=== PATIENT | female | born 1935 | race African-American/Black ===

== ENCOUNTER 2016-09-21 12:41 | Emergency (ER) ==
[2016-09-21 12:52] VITALS: BP 145/81; TEMP 97.1; BMI 16.2
--- NOTE | 2016-09-21 13:08 | ED.PDOC ---
General ED Provider: Dr. ROLY YOO JR Chief Complaint: Dizziness Stated Complaint: states when she woke up this am her head was off balance and has been dizzy. states she has a lot of sinus pressure and ears feel full and runny nose [End]97.1 58 18 98% 145/81 310 Time Seen by Physician: 13:01 Mode of Arrival: Wheelchair Information Source: Patient, Family Exam Limitations: No limitations Primary Care Provider: MIREILLE BROWN Nursing and Triage Documentation Reviewed and Agree: No Review of Systems - Review Of Systems Constitutional: Reports: Malaise, Weakness Eyes: Reports: No symptoms Ears, Nose, Mouth, Throat: Reports: Ear pain (right), Nose discharge (frontal congestion) Respiratory: Reports: No symptoms Cardiac: Reports: No symptoms GI: Reports: No symptoms : Reports: No symptoms Musculoskeletal: Reports: No symptoms Skin: Reports: No symptoms Neurological: Reports: No symptoms Endocrine: Reports: No symptoms Hematologic/Lymphatic: Reports: No symptoms All Other Systems: Other Past Medical History - Past Medical History Previously Healthy: No Endocrine: Reports: Dyslipidemia Cardiovascular: Reports: Hypertension Respiratory: Reports: None Hematological: Reports: None Gastrointestinal: Reports: None Genitourinary: Reports: None Neuro/Psych: Reports: None Musculoskeletal: Reports: Back Pain, Joint Pain Cancer: Reports: None Last Menstrual Period: none - Surgical History General Surgical History: Reports: None - Family History Family History: Reports: None - Social History Smoking Status: Never smoker Hx Substance Use: No Alcohol Screening: None Physical Exam - Physical Exam Appearance: Well-appearing, Thin Eyes: MAREK, EOMI, Conjunctiva clear ENT: Ears normal (TMs retracted congested), Nose normal, Oropharynx normal Neck: Supple Respiratory: Airway patent, Breath sounds clear, Breath sounds equal, Respirations nonlabored Cardiovascular: RRR, Pulses normal, No rub, No murmur GI/: Soft, Nontender, No masses, Bowel sounds normal, No Organomegaly Musculoskeletal: Normal strength, ROM intact, No edema, No calf tenderness Skin: Warm, Dry, Normal color Neurological: Sensation intact, Motor intact, Reflexes intact, Cranial nerves intact, Alert, Oriented Psychiatric: Affect appropriate, Mood appropriate Critical Care Note - Critical Care Note Total Time (mins): 0 Course - Course Orders, Labs, Meds: Orders Category Date Time Status Methylprednisolone Sod Succ/Pf [Solu-Medrol 125 mg] MEDS 09/21/16 13:10 Stat 125 mg IM ONCE STA Medications Generic Name Dose Route Start Last Admin Trade Name Freq PRN Reason Stop Dose Admin Methylprednisolone Sodium Succinate 125 mg 09/21/16 13:10 Solu-Medrol 125 Mg IM 09/21/16 13:11 ONCE STA Vital Signs: Temp Pulse Resp BP Pulse Ox 09/21/16 12:43 97.1 F L 58 L 18 145/81 H 98 Departure - Departure Time of Disposition: 13:12 Disposition: HOME SELF-CARE Discharge Problem: Acute sinusitis Instructions: Sinusitis (ED) Condition: Good Pt referred to PMD for follow-up: Yes Additional Instructions: antihistamine for one week then stop (may resume if any worsening) may use zyrtexc or claritin recheck PMD call Friday for follow up Please follow-up with Dr. Brown in 1-5 days. Prescriptions: Loratadine/Pseudoephedrine [Claritin-D 12 Hour Tablet] 1 each PO BID PRN #60 tab.er.12h PRN Reason: Allergy Symptoms Allergies/Adverse Reactions: Allergies codeine Adverse Reaction (Verified 09/21/16 12:47) UNKNOWN meperidine HCl [From Demerol] Adverse Reaction (Verified 09/21/16 12:47) Home Medications: Ambulatory Orders Bisoprolol Fumarate 5 mg PO DAILY 11/22/12 Buspirone HCl 10 mg PO BID 11/22/12 Furosemide [Lasix Tab] 20 mg PO DIRECTED 11/22/12 Lovastatin [Mevacor] 20 mg PO DAILY 11/22/12 Meclizine HCl [Antivert] 25 mg PO TID PRN 11/22/12 Potassium Chloride [K-Dur] 20 meq PO DAILY 11/22/12 Loratadine/Pseudoephedrine [Claritin-D 12 Hour Tablet] 1 each PO BID PRN #60 tab.er.12h 09/21/16
[2016-09-21] MEDS ORDERED: SOLU-MEDROL 125 MG IM STA (13:10)
== END 2016-09-21 13:36 | disposition home or self-care (01) ==
LOC: ED 12:41
DX: J01.90 Acute sinusitis, unspecified (principal)
CPT/HCPCS: 96372; 99282

== ENCOUNTER 2016-10-18 00:30 | Emergency (ER) ==
[2016-10-18 00:41] VITALS: TEMP 98.4; BMI 16.6
[2016-10-18] MEDS ORDERED: SODIUM CHLORIDE 1,000 ML IV STA (00:48)
--- NOTE | 2016-10-18 00:50 | ED.PDOC ---
General ED Provider: Dr. DOLLY HOOKER Chief Complaint: Dizziness Stated Complaint: Patient is an 81 year old female who states that she woke up feeling dizzy when she got out of bed. State that she is dizzy standing, walking , and lying. has some associated nausea. Antivert did not help. Time Seen by Physician: 00:50 Mode of Arrival: Walk-In Information Source: Patient Exam Limitations: No limitations Primary Care Provider: MIREILLE RBOWN Nursing and Triage Documentation Reviewed and Agree: Yes Neurological Complaint Exam - Dizziness Complaint/Exam Last Known Well: yesterday Onset: Gradual Duration: constant Timing: Intermittent Initial Severity: Moderate Current Severity: Moderate Character: Reports: Head spinning, Room spinning, Lightheaded Aggravating: Reports: Position change, Supine to erect Alleviating: Reports: Lying down Associated Signs and Symptoms: Reports: Nausea, Decreased oral intake. Denies: Vomiting, Diaphoresis, Tinnitus, Chest pain, Short of air, Palpitations, Unsteady gait, GI blood loss, Visual changes, Change in medication, Change in diet, OTC meds, Loss of balance Cardiac Risk Factors: Reports: None CVA Risk Factors: Reports: None Related Surgical History: Reports: Valve Replacement JVD Present: No Carotid Bruit Present: No Rectal Heme Positive: No Nystagmus Present: No Gag Reflex Present: Yes Meningeal Signs Positive: No Focal Weakness: Present: None Focal Sensory Loss: Present: None Gait: Unable [id number]: Normal Findings Romberg Test Positive: No Babinski Sign: Negative Right, Negative Left Heel to Toe Normal: No Roger-Hallpike Test Positive: No Differential Diagnoses: Anxiety Quality Indicator For Non-Traumatic Chest Pain/Syncope: EKG Performed Review of Systems - Review Of Systems Constitutional: Reports: No symptoms Eyes: Reports: No symptoms Ears, Nose, Mouth, Throat: Reports: No symptoms Respiratory: Reports: No symptoms Cardiac: Reports: Lightheadedness GI: Reports: Nausea. Denies: Vomiting : Reports: No symptoms Musculoskeletal: Reports: No symptoms Skin: Reports: No symptoms Neurological: Reports: Anxiety Endocrine: Reports: No symptoms Hematologic/Lymphatic: Reports: No symptoms All Other Systems: Reviewed and Negative Past Medical History - Past Medical History Previously Healthy: No Endocrine: Reports: Dyslipidemia Cardiovascular: Reports: Hypertension Respiratory: Reports: None Hematological: Reports: None Gastrointestinal: Reports: None Genitourinary: Reports: None Neuro/Psych: Reports: None Musculoskeletal: Reports: Back Pain, Joint Pain Cancer: Reports: None Last Menstrual Period: HYST. 40 YRS AGO Other Pertinent Past Medical History: Vertigo - Surgical History General Surgical History: Reports: None - Family History Family History: Reports: None - Social History Smoking Status: Never smoker Hx Substance Use: No Alcohol Screening: None - Immunizations Tetanus Shot up to Date: No (UNSURE) Physical Exam - Physical Exam Appearance: Well-appearing, Ill-appearing, Thin Ill-appearing: Mild Eyes: MAREK, EOMI, Conjunctiva clear Neck: Supple Respiratory: Airway patent, Breath sounds clear, Breath sounds equal, Respirations nonlabored Cardiovascular: RRR, Pulses normal, No rub, No murmur GI/: Soft, Nontender, No masses, Bowel sounds normal, No Organomegaly Musculoskeletal: Normal strength, ROM intact, No calf tenderness, Edema (Lower extrmity ) Skin: Warm, Dry, Normal color Neurological: Sensation intact (Except hard of hearing. ) Psychiatric: Anxious Interpretation - Radiology Interpretation Radiology Interpretation By: Radiologist Radiology Results: Negative Exam Interpreted: CT Scan - EKG Interpretation Time of EKG #1: 01:01 Rate: Normal Rhythm: Sinus Ectopy: None Interpretation: septal infact age unknown Re-Evaluation - Re-Evaluation Time of Re-Evaluation: 03:15 Status: Improved Vital Signs Stable: Yes Additional Comments: Ortho statis resolvved Critical Care Note - Critical Care Note Total Time (mins): 20 Comments: patient is noted to be orthostatic with blood pressure dropping > 30 point with standing. Course - Course Hematology/Chemistry: 10/18/16 01:20 10/18/16 01:20 Orders, Labs, Meds: Lab Review 10/18/16 01:20 WBC 5.47 RBC 4.22 Hgb 11.9 L Hct 35.6 L MCV 84.4 MCH 28.2 MCHC 33.4 RDW Coeff of Katty 13.6 Plt Count 245 Immature Gran % (Auto) 0.4 Neut % (Auto) 61.2 Lymph % (Auto) 28.5 Metcalfe % (Auto) 7.9 Eos % (Auto) 1.3 Baso % (Auto) 0.7 Immature Gran # (Auto) 0.0 Neut # 3.4 Lymph # 1.6 Metcalfe # 0.4 Eos # 0.1 Baso # 0.0 Sodium 141 Potassium 3.7 Chloride 104 Carbon Dioxide 27 Anion Gap 13.7 BUN 11 Creatinine 0.84 Estimated GFR (MDRD) 79.00 BUN/Creatinine Ratio 13.09 Glucose 106 Calcium 9.4 Total Bilirubin 0.38 AST 24 ALT 15 Alkaline Phosphatase 74 Total Creatine Kinase 90 Troponin I < 0.0100 Total Protein 6.4 Albumin 3.3 L Globulin 3.1 Albumin/Globulin Ratio 1.06 Orders Category Date Time Status EKG-(ED ONLY) Stat CARDIO 10/18/16 00:50 Ordered ED IV/MEDIPORT/POWERPORT .ONCE EMERGENCY 10/18/16 00:49 Active Orthostatic [ED ORTHOSTATIC VITAL SIGNS] .ONCE EMERGENCY 10/18/16 00:45 Active CBC W/ AUTO DIFF Stat LAB 10/18/16 01:20 Completed COMPREHENSIVE METABOLIC PANEL Stat LAB 10/18/16 01:20 Completed CREATINE KINASE Stat LAB 10/18/16 01:20 Completed TROPONIN I Stat LAB 10/18/16 01:20 Completed 0.9 % Sodium Chloride [Saline Flush] MEDS 10/18/16 00:49 Ordered 1 syr IVF PRN PRN Ondansetron HCl/Pf [Zofran 4 mg/2 ml] MEDS 10/18/16 01:15 Discontinued 4 mg IVP ONCE STA Sodium Chloride 0.9% [Sodium Chloride] 1,000 ml MEDS 10/18/16 00:[address] HEAD W/O CONTRAST Stat RADS 10/18/16 00:48 Completed Medications Generic Name Dose Route Start Last Admin Trade Name Freq PRN Reason Stop Dose Admin Sodium Chloride 1 syr 10/18/16 00:49 10/18/16 01:29 Saline Flush IVF 1 syr PRN PRN Administration To flush IV Discontinued Medications Generic Name Dose Route Start Last Admin Trade Name Freq PRN Reason Stop Dose Admin Sodium Chloride 1,000 mls @ 1,000 mls/hr 10/18/16 00:48 10/18/16 01:29 Sodium Chloride IV 10/18/16 01:47 1,000 mls/hr BOLUS STA Administration Ondansetron HCl 4 mg 10/18/16 01:15 10/18/16 01:29 Zofran 4 Mg/2 Ml IVP 10/18/16 01:16 4 mg ONCE STA Administration Vital Signs: Temp Pulse Resp BP Pulse Ox 10/18/16 03:03 73 160/89 H 10/18/16 03:02 73 149/92 H 10/18/16 00:48 77 121/80 10/18/16 00:47 78 159/86 H 10/18/16 00:45 77 155/96 H 10/18/16 00:32 98.4 F 75 18 139/91 H 98 Departure - Departure Time of Disposition: 03:20 Disposition: HOME SELF-CARE Discharge Problem: Dizziness, Orthostasis Instructions: Dehydration (ED) Condition: Stable Pt referred to PMD for follow-up: Yes Additional Instructions: Push fluids Follow up with PCP in 3 days Allergies/Adverse Reactions: Allergies codeine Adverse Reaction (Verified 09/21/16 12:47) UNKNOWN meperidine HCl [From Demerol] Adverse Reaction (Verified 09/21/16 12:47) Home Medications: Ambulatory Orders Bisoprolol Fumarate 5 mg PO DAILY 11/22/12 Buspirone HCl 10 mg PO BID 11/22/12 Furosemide [Lasix Tab] 20 mg PO DIRECTED 11/22/12 Lovastatin [Mevacor] 20 mg PO DAILY 11/22/12 Meclizine HCl [Antivert] 25 mg PO TID PRN 11/22/12 Potassium Chloride [K-Dur] 20 meq PO DAILY 11/22/12 Loratadine/Pseudoephedrine [Claritin-D 12 Hour Tablet] 1 each PO BID PRN #60 tab.er.12h 09/21/16 Disposition Discussed With: Patient
[2016-10-18] MEDS ORDERED: ZOFRAN 4 MG/2 ML IVP STA (01:15)
[2016-10-18 01:29] LABS: BASOPHILS % (AUTO) 0.7 % (0.0-3.0); EOSINOPHILS # (AUTO) 0.1 K/ul (0.0-0.7); EOSINOPHILS % (AUTO) 1.3 % (0.0-7.0); HEMATOCRIT 35.6 % (37.0-47.0); HEMOGLOBIN 11.9 g/dl (12.0-16.0); IMMATURE GRANULOCYTE % (AUTO) 0.4 % (0.0-5.0); LYMPHOCYTES # (AUTO) 1.6 K/uL (0.60-3.4); LYMPHOCYTES % (AUTO) 28.5 (10.0-50.0); MEAN CORPUSCULAR HEMOGLOBIN 28.2 pg (27.0-31.0); MEAN CORPUSCULAR HGB CONC 33.4 (31.8-35.4); MEAN CORPUSCULAR VOLUME 84.4 fl (81.0-99.0); MONOCYTES # (AUTO) 0.4 K/uL (0.4-2.0); MONOCYTES % (AUTO) 7.9 (0-10); NEUTROPHILS # (AUTO) 3.4 K/ul (2.0-6.9); NEUTROPHILS % (AUTO) 61.2; PLATELET COUNT 245 10^3/uL (140-440); RED BLOOD COUNT 4.22 10^6/ul (4.20-5.40); WHITE BLOOD COUNT 5.47 K/ul (4.6-10.2)
[2016-10-18 01:51] LABS: ALANINE AMINOTRANSFERASE 15 U/L (12-78); ALBUMIN 3.3 g/dL (3.4-5.0); ALBUMIN/GLOBULIN RATIO 1.06; ALKALINE PHOSPHATASE 74 U/L (53-141); ANION GAP 13.7; ASPARTATE AMINO TRANSFERASE 24 U/L (15-37); BILIRUBIN,TOTAL 0.38 mg/dL (0.00-1.20); BLOOD UREA NITROGEN 11 mg/dL (7-18); BUN/CREATININE RATIO 13.09; CALCIUM 9.4 mg/dL (8.2-10.2); CARBON DIOXIDE 27 mmol/L (23-31); CHLORIDE 104 mmol/L (98-107); CREATINE KINASE 90 U/L; CREATININE 0.84 mg/dL (0.60-1.30); GLUCOSE 106 mg/dL (82-115); POTASSIUM 3.7 mmol/L (3.5-5.10); SODIUM 141 mmol/L (136-145); TOTAL PROTEIN 6.4 g/dL (5.8-8.1)
--- NOTE | 2016-10-18 02:09 | CT ---
EXAM: CT head without contrast 10/18/2016. Sagittal and coronal reformatted images obtained HISTORY: Dizziness COMPARISON: 09/13/2015 FINDINGS: There is no evidence of intracranial hemorrhage. The midline is maintained. There is no hydrocephalus. Generalized atrophy. Chronic small vessel ischemic changes. No cerebellar tonsilla r ectopia. Evaluation of the calvarium shows no fracture. The mastoid air cells are normally pneum atized. IMPRESSION: No acute intracranial abnormality.
[2016-10-18 03:03] VITALS: BP 160/89
== END 2016-10-18 03:15 | disposition home or self-care (01) ==
LOC: ED 00:30
DX: R42 Dizziness and giddiness (principal); I95.1 Orthostatic hypotension; E86.0 Dehydration; E78.5 Hyperlipidemia, unspecified; I10 Essential (primary) hypertension; Z79.899 Other long term (current) drug therapy; Z95.2 Presence of prosthetic heart valve
CPT/HCPCS: 36415; 80053; 82550; 84484; 85025; 93005; 93010; 96360; 96361; 96375; 99284

== ENCOUNTER 2017-01-17 08:22 | Outpatient (CLI) ==
--- NOTE | 2017-01-20 09:03 | MAMMO ---
EXAM: Bilateral digital screening mammogram (2-D and 3-D) History: Screening Comparison: Bilateral mammogram 06/28/2015 Findings: MLO and CC views of bilateral breasts demonstrate scattered fibroglandular breast parenchy ma. CAD was reviewed by the radiologist. Tomosynthesis was performed. Stable benign bilateral vascu lar calcifications. Postoperative changes again seen within the left breast. There are no dominant masses, no suspicious microcalcifications and no architectural distortions Impression: Benign stable mammogram. Recommend followup routine screening mammography in 1 year. BIRADS 2
== END 2017-01-17 08:23 | disposition home or self-care (01) ==
LOC: RAD 08:22
PROVIDERS: ATTEND Internal Medicine
DX: Z12.31 Encounter for screening mammogram for malignant neoplasm of breast (principal)
CPT/HCPCS: 77067

== ENCOUNTER 2017-04-17 21:23 | Emergency (ER) ==
--- NOTE | 2017-04-17 21:29 | ED.PDOC ---
General ED Provider: Dr. IDANIA DAWKINS-ER Chief Complaint: Respiratory Complaint Stated Complaint: amado allergies or the flu--my nose is congested and im sneezing Time Seen by Physician: 21:27 Mode of Arrival: Walk-In Information Source: Patient Exam Limitations: No limitations Primary Care Provider: MIREILLE BURDEN Nursing and Triage Documentation Reviewed and Agree: Yes Reviewed sepsis parameters & appropriate labs ordered?: Yes System Inflammatory Response Syndrome: Not Applicable Sepsis Protocol: For patient's 13 years and over: Temp is 96.8 and below OR 101 and greater Pulse >90 BPM Resp >20/minute Acutely Altered Mental Status Are patient's symptoms suggestive of a new infection, such as: -Pneumonia -Skin, Soft Tissue -Endocarditis -UTI -Bone, Joint Infection -Implantable Device -Acute Abdominal Infection -Wound Infection -Meningitis -Blood Stream Catheter Infection -Unknown EENT Complaint Exam - Nasal Complaint/Exam Onset/Duration: less than 12hrs Symptoms Are: Still present Initial Severity: Mild Current Severity: Mild Aggravating: Reports: URI Associated Signs and Symptoms: Reports: Nasal congestion, Nasal discharge. Denies: Bruising, Hematuria, Hematochezia, Sinus pain, Foreign body, Abnormal coags Nasal Surgical History: Reports: None Foreign Body Present: No Septal Hematoma: No Differential Diagnoses: Allergic Rhinitis, Other Review of Systems - Review Of Systems Constitutional: Reports: No symptoms Eyes: Reports: No symptoms Ears, Nose, Mouth, Throat: Reports: Nose discharge Respiratory: Reports: No symptoms Cardiac: Reports: No symptoms GI: Reports: No symptoms : Reports: No symptoms Musculoskeletal: Reports: No symptoms Skin: Reports: No symptoms Neurological: Reports: No symptoms Endocrine: Reports: No symptoms Hematologic/Lymphatic: Reports: No symptoms All Other Systems: Reviewed and Negative Past Medical History - Past Medical History Previously Healthy: No Endocrine: Reports: Dyslipidemia Cardiovascular: Reports: Hypertension Respiratory: Reports: None Hematological: Reports: None Gastrointestinal: Reports: None Genitourinary: Reports: None Neuro/Psych: Reports: None Musculoskeletal: Reports: Back Pain, Joint Pain Cancer: Reports: None Other Pertinent Past Medical History: Vertigo - Surgical History General Surgical History: Reports: None - Family History Family History: Reports: None - Social History Smoking Status: Never smoker Hx Substance Use: No Alcohol Screening: None Physical Exam - Physical Exam Appearance: Well-appearing, No pain distress, Well-nourished Eyes: MAREK, EOMI, Conjunctiva clear ENT: Rhinorrhea Neck: Supple Respiratory: Airway patent Cardiovascular: RRR, Pulses normal, No rub, No murmur GI/: Soft, Nontender, No masses, Bowel sounds normal, No Organomegaly Musculoskeletal: Normal strength, ROM intact, No edema, No calf tenderness Skin: Warm, Dry, Normal color Neurological: Sensation intact, Motor intact, Reflexes intact, Cranial nerves intact, Alert, Oriented Psychiatric: Affect appropriate, Mood appropriate Critical Care Note - Critical Care Note Total Time (mins): 0 Course - Course Orders, Labs, Meds: Orders Category Date Time Status MOLECULAR FLU A/B Stat LAB 04/17/17 21:26 Uncollected MOLECULAR GROUP A STREP Stat LAB 04/17/17 21:26 Uncollected Departure - Departure Time of Disposition: 21:59 Disposition: HOME SELF-CARE Discharge Problem: Rhinitis Qualifiers: Rhinitis type: unspecified Chronicity: acute Qualified Code(s): J00 - Acute nasopharyngitis [common cold] Sinusitis Qualifiers: Sinusitis location: unspecified location Chronicity: acute Recurrence: non- recurrent Qualified Code(s): J01.90 - Acute sinusitis, unspecified Condition: Good Pt referred to PMD for follow-up: Yes Additional Instructions: zpack--f/u wtih dr burden if not getting better Allergies/Adverse Reactions: Allergies codeine Adverse Reaction (Verified 04/17/17 21:32) UNKNOWN meperidine HCl [From Demerol] Adverse Reaction (Verified 04/17/17 21:32) Home Medications: Ambulatory Orders Bisoprolol Fumarate 5 mg PO DAILY 11/22/12 Buspirone HCl 10 mg PO BID 11/22/12 Furosemide [Lasix Tab] 20 mg PO DIRECTED 11/22/12 Lovastatin [Mevacor] 20 mg PO DAILY 11/22/12 Meclizine HCl [Antivert] 25 mg PO TID PRN 11/22/12 Potassium Chloride [K-Dur] 20 meq PO DAILY 11/22/12 Loratadine/Pseudoephedrine [Claritin-D 12 Hour Tablet] 1 each PO BID PRN #60 tab.er.12h 09/21/16 Cetirizine HCl [Zyrtec] 10 mg PO DAILY PRN 04/17/17 Dicyclomine HCl 10 mg PO BID 04/17/17 Tizanidine HCl 4 mg PO DIRECTED 04/17/17 Disposition Discussed With: Patient
[2017-04-17 21:33] VITALS: BP 156/89; TEMP 98.1; BMI 15.0
[2017-04-17] MEDS ORDERED: DECADRON 4 MG/ML SDV IM STA (21:59)
== END 2017-04-17 22:55 | disposition home or self-care (01) ==
LOC: ED 21:23
DX: J01.90 Acute sinusitis, unspecified (principal); J00 Acute nasopharyngitis [common cold]
CPT/HCPCS: 87502; 87651; 96372; 99283

== ENCOUNTER 2017-06-06 07:41 | Outpatient (CLI) ==
--- NOTE | 2017-06-06 09:43 | DI ---
Exam: Six x-rays of the cervical spine. Comparison: None available. Reason for exam: Pain. Technologist note. Patient unable to straighten neck for examination. FINDINGS: Image interpretation is limited by degenerative disease and positioning. No obvious fracture or listhesis in the cervical spine. The vertebral bodies appear relatively well m aintained. There is reversal of the cervical lordotic curve. Severe degenerative disease is seen wi th intervertebral body disc space height loss, osteophyte formation, and facet hypertrophy. The prev ertebral soft tissues are within normal limits. The dens appears grossly intact. Impression: 1. No obvious fracture or listhesis in the cervical spine although evaluation is limited by positioni ng. 2. Moderate to marked degenerative disease seen throughout the cervical spine with reversal of the c ervical lordotic curve, osteophyte formation, intervertebral body disc space height loss, and facet h ypertrophy. If clinical concern exists for radiculopathy or myelopathy, MRI may be performed for fur ther characterization.
== END 2017-06-06 07:42 | disposition home or self-care (01) ==
LOC: RAD 07:41
PROVIDERS: ATTEND Internal Medicine
DX: M54.2 Cervicalgia (principal); M43.6 Torticollis

== ENCOUNTER → 2017-06-18 | Outpatient (RCR) ==
--- NOTE | 2017-06-04 14:16 | RS.OPPTEV2 ---
Date of Note: 06/03/17 Visit #: 1 Date of Evaluation: 06/03/17 Payer Source: MEDICARE Treatment Diagnosis: Neck pain, Torticollis History of Condition/Mechanism of Injury:: Patient reports having this problem with her neck for a few years. States she started sleeping on the couch three years ago, and wonders if that is why she has trouble with her neck now. She has received Chiropractor treatment without any lasting benefit. Prior Level of Function.....Patient was independent with: ADL's, Self Care, Work /Vocation, Ambulation/Mobility, Community Integration/Access Functional Limitations: Sleep, Self Care, ADL's, Reaching, Lifting, Ambulation, Community Access/Integration Current Subjective/complaints:: Patient reports neck stiffness and pain. States she has neck pain at rest and when trying to turn her head. States the position of her head and neck limits her driving. States washing her face is difficult because she has pain and is unalbe to raise her head up and hold it very long. Reports having headaches, but she wonders if headaches may be due to sinus problems. States pain in her neck is sharp at times, but also feels like a drawing sensation. She denies any tingling/numbness, or pain into the UE's. States she does not lay down, even to sleep. States she usually falls asleep sitting up on the couch. States she was given a few stretches to work on at home when she went to the Chiropractor, but states she may not have been doing them correctly. 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 States it is difficult to do any activity that requires her to raise her head. Medical History Medical History: Hypertension, Arthritis (bilateral knees) Smoking Status: Never smoker Hx Home Medications: Patient states she has prescriptions to hot die picker today, but she is not sure what they are. Patient's Goals: Her goal is to get relief of neck pain and be able to have more normal posture. Pain Assessment - Pain Description Pain Location: left neck pain Pain Description: Tightness, Sharp, Aching Current Pain Intensity: 9/10 Worst Pain Intensity: 10/10 Functional Outcome Measure Neck Disability Index: 36 - G Codes & Severity Modifier G Codes & Modifier: Body pos current Ck. Body pos goal CI Source of G Code score: Patient's presentation of functional limitation during evaluation is at least 50%. Neck Disability index score of 36. Observation - Observation Posture: Forward Head, Rounded Shoulders, Scapula Asymmetry (right elevated) Comments: Resting posture patient demonstrates left tilt of head, cervical spine laterally flexed to the left with right rotation. At rest, left ear measures 2 1 /2 inches from the top of the left shoulder. Handedness: Right Gait - Gait Pattern Gait Comments: Patient ambulates without an assistive device with a cautious gait. Head is left laterally flexed and forward during gait. Patient states she looks down as she walks to avoid falling. - ROM Comments: Patient demonstrates marked decrease in all cervical AROM. When asked to look up, patient rotates the cervical spine to the right and extends the trunk. Cervical flexion is also limited due to her spine deformity, but she is able to bring the head forward a functional distance. When attempting right lateral flexion, patient's left ear is 3 1/2 inches from the top of the left shoulder. She is unable to raise the head to full midline. Cervical rotation to the right is approximately 15 degrees, she then compensates by turning her body for further range. Left cervical rotation is minimal and does not come to midline. - Strength Comments: Cervical extension 3+/5, flexion 4/5, left lateral flexion 4/5, right lateral flexion 3/5. Shoulder ROM: Bilaterally WFL's Shoulder Muscle Strength: Bilaterally WFL's Sales Producer Strength Left Hand Sales Producer Strength: 22 lbs. Right Hand Sales Producer Strength: 22 lbs. Dynamometer Testing Position: 2nd Position Palpation Comments:: Marked hypertonicity is noted throughout the left upper traps, SCM, cervical paravertebral muscles, levator scapula and suboccipital musculature. Reports tenderness to palpation at the left suboccipital myofascia and most superior aspect of SCM. Sensation - Sensation Right Upper Extremity: Intact/Normal Left Upper Extremity: Intact/Normal Interventions - Exercise/Activities/Manual Therapy Exercises/Activities: Patient instructed in gentle stretching into lateral flexion and rotation. Also right lateral flexion against gravity. Total minutes of Exercise: 5 mins Manual Therapy: NA HOME EXERCISE PROGRAM: gentle stretching into lateral flexion and rotation. Also right lateral flexion against gravity. - Charges Timed Code Treatment Minutes: 5 mins Total Treatment Time: 50 mins Procedures billed for this date of service:: EVAL Medium EVALUATION COMPLEXITY LEVEL EVALUATION COMPLEXITY LEVEL: HISTORY: Medium, EXAM OF BODY SYSTEMS: Medium, CLINICAL PRESENTATION: Medium, CLINICAL DECISION MAKING: Medium Assessment Assessment: Patient presents to therapy with a diagnosis of neck pain and left torticollis. She demonstrates marked postural deformity of the cervical spine and limitation of cervical ROM. She reports neck pain at rest and with activities. She exhibits hypertonicity throughout the left cervical spine musculature. This appears to be a chronic problem over at least a few years. She demonstrates poor postural awareness. She should gain more cervical mobility and postural stability with skilled therapy. If progress is minimal, she may need further intervention, such as Botox injections to be able to gain progress with therapy. Patient Education: Education of diagnosis, Body/Joint mechanics, Home Exercise Program, Activity Modification, Education of Plan of Care Rehab Potential: Fair Short Term Goals Goal #1: Patient independent and compliant with HEP. Goal to be met by: 06/14/17 Goal #2: Pt consistent with taking muscle relaxent in the evening. Goal to be met by: 06/18/17 Goal #3: Patient to demonstrate good postural awareness. Goal to be met by: 06/18/17 Goal #4: Pt able to hold head into more aligned posture for 30 seconds. Goal to be met by: 06/18/17 Halfway Goals Goal #1: Pt knows HEP and to continue ex's to maintain functional level at D/C. Goal to be met by: 07/14/17 Goal #2: Functional presentation in department less than or equal to 30% impairment. Goal to be met by: 07/14/17 Goal #3: Neck pain <4/10 with daily home and work activities. Goal to be met by: 07/14/17 Goal #4: Cervical AROM improved to enable patient to drive with minimal difficulty. Goal to be met by: 07/14/17 Plan - Treatment to be Provided Procedures: Therapeutic Exercises, Therapeutic Activity, Manual Therapy, Patient Education Modalities: Electrical Stimulation, Ultrasound/Phonophoresis, Cryotherapy, Hot Packs - Treatment Plan Frequency: 2-3 X week Duration: 4 weeks ORDER # VISITS AND/OR THROUGH DATE: 07/14/17 - Treatment Code (1) Neck pain Code(s): M54.2 - CERVICALGIA Comments: M54.2 (2) Acquired torticollis Code(s): M43.6 - TORTICOLLIS Comments: M43.6
--- NOTE | 2017-06-06 08:34 | RS.OPPTDN ---
Subjective Date of Note: 06/04/17 Visit #: 2 Date of Evaluation: 06/03/17 Payer Source: MEDICARE Treatment Diagnosis: Neck pain, Torticollis Current Subjective/complaints:: Patient brings in medication which is a steroid pack. States she believes it has helped a little. She is on the first day of the steroid pack. - Heat/Cryotherapy Treatment: Hot Pack (X 15 mins to left upper traps prior to stretching) Interventions - Exercise/Activities/Manual Therapy Exercises/Activities: Patient position in long sitting with head of bed elevated to allow patient to recline with support of head with pillows. Patient assisted with gentle stretching into right lateral flexion. Performed long axis distraction through left arm with and manual scapular depression x 3 reps. Patient performed isometrics into right lateral flexion , 2 sets of 5 reps. Perform isometrics into cervical extension against the pillows X 5 reps. Patient received manual cervical traction gently 5-6 times for a short hold. Patient performed bilateral shoulder ER and scapular retraction X 10 reps each. Patient given a red band for use at home. Total minutes of Exercise: X 28 mins Manual Therapy: NA HOME EXERCISE PROGRAM: gentle stretching into lateral flexion and rotation. Also right lateral flexion against gravity. red theraband for scapular retraction. - Charges Timed Code Treatment Minutes: 28 mins Total Treatment Time: 38 mins Procedures billed for this date of service:: HP, EX,ADL Assessment: Patient tolerates stretching and beginning postural education. She presents to be responsive to advice for home positioning and activities. She demonstrates the potential to gain improved postural awareness and less neck pain with skilled therapy. Patient Education: Education of diagnosis, Body/Joint mechanics, Home Exercise Program, Home Safety, Activity Modification, Education of Plan of Care Short Term Goals Goal #1: Patient independent and compliant with HEP. Goal to be met by: 06/14/17 Goal #2: Pt consistent with taking muscle relaxent in the evening. Goal to be met by: 06/18/17 Goal #3: Patient to demonstrate good postural awareness. Goal to be met by: 06/18/17 Goal #4: Pt able to hold head into more aligned posture for 30 seconds. Goal to be met by: 06/18/17 Intermediate Goals Goal #1: Pt knows HEP and to continue ex's to maintain functional level at D/C. Goal to be met by: 07/14/17 Goal #2: Functional presentation in department less than or equal to 30% impairment. Goal to be met by: 07/14/17 Goal #3: Neck pain <4/10 with daily home and work activities. Goal to be met by: 07/14/17 Goal #4: Cervical AROM improved to enable patient to drive with minimal difficulty. Goal to be met by: 07/14/17 Plan PLAN OF CARE EXPIRES ON:: 07/14/17 ORDER # VISITS AND/OR THROUGH DATE: 07/14/17 PLAN: Continue postural/home positioning education and progression of exercises.
--- NOTE | 2017-06-06 09:56 | RS.OPPTDN ---
Subjective Date of Note: 06/06/17 Visit #: 3 Date of Evaluation: 06/03/17 Payer Source: MEDICARE Treatment Diagnosis: Neck pain, Torticollis Current Subjective/complaints:: Patient says she is trying to work on sleeping or laying down extending her neck with propping instead of laying on her L side. She says she does hurt with some exercises, but she is eager to continue to improve. 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 Pamela also uses heat and "massager" at home. - Treatment Patient Position: Prone - Heat/Cryotherapy Treatment: Hot Pack (L UT in inclined position x 20 mins with towel support under her neck ) Interventions - Exercise/Activities/Manual Therapy Exercises/Activities: Patient continued position in long sitting with head of bed elevated to allow patient to recline with support of head with pillows. Patient assisted with gentle stretching into right lateral flexion and slight SBing. Patient performed isometrics into right lateral flexion , 2 sets of 5 reps. Perform isometrics into cervical extension against the pillows X 5 reps. Patient received continued manual cervical traction gently 5-6 times for a short hold. Patient performed bilateral shoulder ER and scapular retraction X 10 reps each. Multiple reps of patient actively looking up to demo cervical extension to neutral and holding for several seconds. Patient instructed in standing at sink while doing her hair/makeup to place hands on sink and look up into mirror several times and hold for postural techniques. Total minutes of Exercise: 30 Manual Therapy: NA HOME EXERCISE PROGRAM: gentle stretching into lateral flexion and rotation. Also right lateral flexion against gravity. red theraband for scapular retraction. - Charges Timed Code Treatment Minutes: 30 Total Treatment Time: 50 Procedures billed for this date of service:: hp, MT, ex Assessment: Patient continues to be motivated and eager to continue with PT and ideas at home to help her improve neck pain and mobility. She appears to be trying positions at home, using heat/massager, and working on ROM/repositioning while at work. ROM measured from ear to L shoulder after treatment today is 4 1 /4 in compared to eval of 3 1/2 in. demo improvement with patient actively holding her head up. Patient Education: Education of diagnosis, Body/Joint mechanics, Home Exercise Program, Education of Plan of Care Patient demonstrates compliance with HEP?: Yes Short Term Goals Goal #1: Patient independent and compliant with HEP. Goal to be met by: 06/14/17 Progress towards Goal:: Progressing Goal #2: Pt consistent with taking muscle relaxent in the evening. Goal to be met by: 06/18/17 Goal #3: Patient to demonstrate good postural awareness. Goal to be met by: 06/18/17 Goal #4: Pt able to hold head into more aligned posture for 30 seconds. Goal to be met by: 06/18/17 Prison Goals Goal #1: Pt knows HEP and to continue ex's to maintain functional level at D/C. Goal to be met by: 07/14/17 Goal #2: Functional presentation in department less than or equal to 30% impairment. Goal to be met by: 07/14/17 Goal #3: Neck pain <4/10 with daily home and work activities. Goal to be met by: 07/14/17 Goal #4: Cervical AROM improved to enable patient to drive with minimal difficulty. Goal to be met by: 07/14/17 Plan PLAN OF CARE EXPIRES ON:: 07/14/17 ORDER # VISITS AND/OR THROUGH DATE: 07/14/17 PLAN: Continue with modalties and MT to improve cervical ROM
--- NOTE | 2017-06-09 16:31 | RS.OPPTDN ---
Subjective Date of Note: 06/09/17 Visit #: 5 Date of Evaluation: 06/03/17 Payer Source: MEDICARE Treatment Diagnosis: Neck pain, Torticollis Current Subjective/complaints:: Patient says she is hopeful her neck "will get better." She says that she is trying to work on HEP and being conscientious of looking up. - Heat/Cryotherapy Treatment: Hot Pack (20 mins to the cervical in inclined/propped position) Interventions - Exercise/Activities/Manual Therapy Exercises/Activities: Patient continued position in long sitting with head of bed elevated to allow patient to recline with support of head with pillows. Patient continued with gentle stretching into right lateral flexion and slight SBing. Patient performed isometrics into right lateral flexion , 2 sets of 5 reps. Perform isometrics into cervical extension against the pillows X 5 reps. Patient received continued manual cervical traction gently 5-6 times for a short hold. Patient performed bilateral shoulder ER and scapular retraction X 10 reps each. Bilateral shoulder flexion at EOB with PHYSICIST [employer] support for neck closer to midline and for scapula. Multiple reps of patient actively looking up to demo cervical extension to neutral and holding for several seconds. Total minutes of Exercise: 22 Manual Therapy: Patient received STM to bilateral cervical paraspinals and UT. Gentle cervical traction in a semi reclined position. Total minutes of Manual Therapy: 15 HOME EXERCISE PROGRAM: gentle stretching into lateral flexion and rotation. Also right lateral flexion against gravity. red theraband for scapular retraction. - Charges Timed Code Treatment Minutes: 37 Total Treatment Time: 57 Procedures billed for this date of service:: hp, ex, MT Assessment: Patient experiencing less pain with treatment at recent sessions and today as well. Slight improvement seen with ROM, however, it appears to be temporary right now. She is being more conscientious of posture and trying to correct it at home and in our department. Patient Education: Education of diagnosis, Body/Joint mechanics, Home Exercise Program Patient demonstrates compliance with HEP?: Yes Short Term Goals Goal #1: Patient independent and compliant with HEP. Goal to be met by: 06/14/17 Progress towards Goal:: Progressing Goal #2: Pt consistent with taking muscle relaxent in the evening. Goal to be met by: 06/18/17 Progress towards Goal:: Progressing Goal #3: Patient to demonstrate good postural awareness. Goal to be met by: 06/18/17 Progress towards Goal:: Progressing Goal #4: Pt able to hold head into more aligned posture for 30 seconds. Goal to be met by: 06/18/17 [facility] Goals Goal #1: Pt knows HEP and to continue ex's to maintain functional level at D/C. Goal to be met by: 07/14/17 Goal #2: Functional presentation in department less than or equal to 30% impairment. Goal to be met by: 07/14/17 Goal #3: Neck pain <4/10 with daily home and work activities. Goal to be met by: 07/14/17 Goal #4: Cervical AROM improved to enable patient to drive with minimal difficulty. Goal to be met by: 07/14/17 Plan PLAN OF CARE EXPIRES ON:: 07/14/17 ORDER # VISITS AND/OR THROUGH DATE: 07/14/17 PLAN: Patient to continue for thermal therapy and EX/MT to improve mobility and pain.
--- NOTE | 2017-06-11 16:26 | RS.OPPTDN ---
Subjective Date of Note: 06/11/17 Visit #: 4 Date of Evaluation: 06/03/17 Payer Source: MEDICARE Treatment Diagnosis: Neck pain, Torticollis Current Subjective/complaints:: Patient says she feels her neck is slowly improving with mobility. She says pain is still "pretty bad," but tenderness is better with massage. She reports she still tries to be conscientious about raising her head up several times while pushing her cart at work. Pain Assessment - Pain Description Pain Location: L side of her neck - Heat/Cryotherapy Treatment: Hot Pack (cervical and L side/shoulder x 20 mins in supine/inclined position with less pillow support) Interventions - Exercise/Activities/Manual Therapy Exercises/Activities: Patient continued position in long sitting with head of bed elevated to allow patient to recline with support of head with pillows, however, less incline and pillow support is required today. Patient continued with gentle stretching into right lateral flexion and slight SBing. Patient performed isometrics into right lateral flexion , 2 sets of 5 reps. Perform isometrics into cervical extension against the pillows X 5 reps. Patient received continued manual cervical traction gently 5-6 times for a short hold x 3 sets. Patient performed bilateral shoulder ER and scapular retraction X 10 reps each. Bilateral shoulder flexion at EOB with ACCOUNT GROUP SUPERVISOR support for neck closer to midline and for scapula. Multiple reps of patient actively looking up to demo cervical extension to neutral and holding for several seconds. Measurement from L shoulder to earlobe is 5 inches in supine and she is able to maintain that same measurement in sitting with verbal cues for active cervical midline. Total minutes of Exercise: 17 Manual Therapy: Patient received STM to bilateral cervical paraspinals and UT. Gentle cervical traction in a semi reclined position. Total minutes of Manual Therapy: 13 HOME EXERCISE PROGRAM: gentle stretching into lateral flexion and rotation. Also right lateral flexion against gravity. red theraband for scapular retraction. - Charges Timed Code Treatment Minutes: 30 Total Treatment Time: 50 Procedures billed for this date of service:: hp, MT, EX Assessment: Patient demo improved active motion of cspine allowing for increased R rotation and closer to neutral cspine. She continues to have mod to severe neck pain, but does admit improved tenderness with MT and co-workers commenting that they are able to see improved motion. She is performing heat, self stretching/ex, and postural awareness at home/work. She is out of her muscle relaxer at this time so she is unable to take it at bedtime. Patient Education: Body/Joint mechanics, Home Exercise Program, Education of Plan of Care Patient demonstrates compliance with HEP?: Yes Short Term Goals Goal #1: Patient independent and compliant with HEP. Goal to be met by: 06/14/17 Progress towards Goal:: Progressing Goal #2: Pt consistent with taking muscle relaxent in the evening. Goal to be met by: 06/18/17 Progress towards Goal:: Progressing Goal #3: Patient to demonstrate good postural awareness. Goal to be met by: 06/18/17 Progress towards Goal:: Progressing Goal #4: Pt able to hold head into more aligned posture for 30 seconds. Goal to be met by: 06/18/17 Longterm Goals Goal #1: Pt knows HEP and to continue ex's to maintain functional level at D/C. Goal to be met by: 07/14/17 Progress towards goal: Progressing Goal #2: Functional presentation in department less than or equal to 30% impairment. Goal to be met by: 07/14/17 Goal #3: Neck pain <4/10 with daily home and work activities. Goal to be met by: 07/14/17 Goal #4: Cervical AROM improved to enable patient to drive with minimal difficulty. Goal to be met by: 07/14/17 Plan PLAN OF CARE EXPIRES ON:: 07/14/17 ORDER # VISITS AND/OR THROUGH DATE: 07/14/17 PLAN: Patient to continue to receive MT/ex to improve cspine ROM
--- NOTE | 2017-06-13 16:27 | RS.OPPTDN ---
Subjective Date of Note: 06/13/17 Visit #: 5 Date of Evaluation: 06/03/17 Payer Source: MEDICARE Treatment Diagnosis: Neck pain, Torticollis Current Subjective/complaints:: Patient says she is able to turn her neck better while driving. She says she is less tender with MT and continues to perform ROM and is able to "look up" more often. Patient expresses that she will be returning to her MD to discuss xray results on 07/04/17. She c/o more of L knee pain today than her neck. - Heat/Cryotherapy Treatment: Hot Pack (cervical and mostly around the L side x 20 mins in inclined positon) Interventions - Exercise/Activities/Manual Therapy Exercises/Activities: Patient continued position in long sitting with head of bed elevated to allow patient to recline with support of head with only 1 flattened pillow now. Also, patient able to herlinda a less inclined position of HOB. Patient continued with gentle stretching into right lateral flexion and increased SBing. Patient performed isometrics into right lateral flexion , 2 sets of 5 reps. Perform isometrics into cervical extension against the pillows X 5 reps and able to herlinda increased cervical extension at rest. Patient received continued manual cervical traction gently 5-6 times for a short hold x 4 sets. Patient performed bilateral shoulder ER and scapular retraction with red tband using therapy wand X 10 reps each requiring minimal clinician support to prevent posterior lean. Bilateral shoulder flexion at EOB with FLAT SPRING ASSEMBLER support for neck closer to midline and for scapula. Multiple reps of patient actively looking up to demo cervical extension to neutral and holding for now up to 15 seconds. Total minutes of Exercise: 23 Manual Therapy: Patient received STM to bilateral cervical paraspinals and UT. Gentle cervical traction in a semi reclined position. Total minutes of Manual Therapy: 10 HOME EXERCISE PROGRAM: gentle stretching into lateral flexion and rotation. Also right lateral flexion against gravity. Shoulder shrugs, scap adduction, and actively holding her head up. - Charges Timed Code Treatment Minutes: 33 Total Treatment Time: 53 Procedures billed for this date of service:: hp, MT, EX Assessment: Patient admits improved neck pain, tenderness with palpation through MT, and increased cervical motion closer to midline and less R SBing. She expresses co workers and family have noticed improvement with her motion as well. Patient Education: Education of diagnosis, Body/Joint mechanics, Home Exercise Program Patient demonstrates compliance with HEP?: Yes Short Term Goals Goal #1: Patient independent and compliant with HEP. Goal to be met by: 06/14/17 Progress towards Goal:: Progressing Goal #2: Pt consistent with taking muscle relaxent in the evening. Goal to be met by: 06/18/17 Progress towards Goal:: Progressing Comments:: patient out of these medications Goal #3: Patient to demonstrate good postural awareness. Goal to be met by: 06/18/17 Progress towards Goal:: Progressing Goal #4: Pt able to hold head into more aligned posture for 30 seconds. Goal to be met by: 06/18/17 Progress towards Goal:: Progressing (Now 15 sec's) [employer] Goals Goal #1: Pt knows HEP and to continue ex's to maintain functional level at D/C. Goal to be met by: 07/14/17 Progress towards goal: Progressing Goal #2: Functional presentation in department less than or equal to 30% impairment. Goal to be met by: 07/14/17 Goal #3: Neck pain <4/10 with daily home and work activities. Goal to be met by: 07/14/17 Goal #4: Cervical AROM improved to enable patient to drive with minimal difficulty. Goal to be met by: 07/14/17 Plan PLAN OF CARE EXPIRES ON:: 07/14/17 ORDER # VISITS AND/OR THROUGH DATE: 07/14/17 PLAN: Patient to continue with modalities and therex to improve cervical ROM
--- NOTE | 2017-06-18 16:45 | RS.OPPTDN ---
Subjective Date of Note: 06/18/17 Visit #: 6 Date of Evaluation: 06/03/17 Payer Source: MEDICARE Treatment Diagnosis: Neck pain, Torticollis Current Subjective/complaints:: Patient says she is trying to work on HeP and posture at home and work. She says she forgets to take muscle relaxer at bedtime because she gets sleepy and remembers in the morning. She says she is still also having trouble sleeping on the R sidelying due to pain. Reports being grateful for the motion she has and the improvement and would like this motion to remain. - Heat/Cryotherapy Treatment: Hot Pack (cervical and over the L side of the neck and shoulder in supine mildly inclined) Interventions - Exercise/Activities/Manual Therapy Exercises/Activities: Patient continued position in long sitting with head of bed elevated to allow patient to recline with support of head with only 1 flattened pillow now. Also, patient able to herlinda a less inclined position of HOB. Patient continued with gentle stretching into right lateral flexion and increased SBing. Patient performed isometrics into right lateral flexion , 2 sets of 5 reps. Perform isometrics into cervical extension against my hand X 5 reps and able to herlinda increased cervical extension at rest. Patient received continued manual cervical traction gently 5-6 times for a short hold x 4 sets. Patient performed bilateral shoulder flexion with therapy wand 1# x 10 with improved postural awareness. She is able to practice holding her head closer to midline for up to 30 sec's x 3. Sitting: cervical R SB and retraction isometrics. Multiple reps of patient actively looking up to demo cervical extension to neutral. Total minutes of Exercise: 17 Manual Therapy: Patient received STM to bilateral cervical paraspinals and UT. Gentle cervical traction in a semi reclined position. Total minutes of Manual Therapy: 12 HOME EXERCISE PROGRAM: gentle stretching into lateral flexion and rotation. Also right lateral flexion against gravity. Shoulder shrugs, scap adduction, and actively holding her head up. - Charges Timed Code Treatment Minutes: 29 Total Treatment Time: 29 Procedures billed for this date of service:: Hp, ex, mt Patient Education: Education of diagnosis, Body/Joint mechanics, Home Exercise Program Patient demonstrates compliance with HEP?: Yes Short Term Goals Goal #1: Patient independent and compliant with HEP. Goal to be met by: 06/14/17 Progress towards Goal:: Progressing Goal #2: Pt consistent with taking muscle relaxent in the evening. Goal to be met by: 06/18/17 Progress towards Goal:: Progressing Comments:: Patient not taking at this time due to forgetting Goal #3: Patient to demonstrate good postural awareness. Goal to be met by: 06/18/17 Progress towards Goal:: Progressing Goal #4: Pt able to hold head into more aligned posture for 30 seconds. Goal to be met by: 06/18/17 Progress towards Goal:: Progressing (Now 15 sec's) [facility] Goals Goal #1: Pt knows HEP and to continue ex's to maintain functional level at D/C. Goal to be met by: 07/14/17 Progress towards goal: Progressing Goal #2: Functional presentation in department less than or equal to 30% impairment. Goal to be met by: 07/14/17 Goal #3: Neck pain <4/10 with daily home and work activities. Goal to be met by: 07/14/17 Progress towards goal: Progressing Goal #4: Cervical AROM improved to enable patient to drive with minimal difficulty. Goal to be met by: 07/14/17 Progress towards goal: Progressing (patient admits to improved ability to turn her head while driving) Plan PLAN OF CARE EXPIRES ON:: 07/14/17 ORDER # VISITS AND/OR THROUGH DATE: 07/14/17 PLAN: Patient to continue with MT and assist with cspine ROM
== END ==
PROVIDERS: ATTEND Internal Medicine
DX: M43.6 Torticollis (principal); M54.2 Cervicalgia

== ENCOUNTER 2017-07-08 15:30 | Outpatient (RCR) ==
--- NOTE | 2017-06-20 16:37 | RS.OPPTDN ---
Subjective Date of Note: 06/20/17 Visit #: 8 Date of Evaluation: 06/03/17 Payer Source: MEDICARE Treatment Diagnosis: Neck pain, Torticollis Current Subjective/complaints:: Patient c/o ROJO today related to allergies. She says she does not know how much she can do or herlinda. Reports she did start take muscle relaxer at bedtime last night, but doesn't know if it was effective. Pain Assessment - Pain Description Pain Location: L sided neck pain and ROJO at the forehead - Heat/Cryotherapy Treatment: Hot Pack (over the L side of the neck/shoulder and R cervical in inclined position x 15 mins) Interventions - Exercise/Activities/Manual Therapy Exercises/Activities: Pamela arrived 20 mins late. Abbreviated session today. Patient continued position in long sitting with head of bed elevated to allow patient to recline with support of head with only 1 flattened pillow now. Also, patient able to herlinda a less inclined position of HOB. Pamela received occipital release and gentle manual traction multiple reps with longer hold periods. She received passive stretching and ROM gentle for R SBing and R rotation. Isometrics for R SB and neck retraction into pillow x 5 supine and then Active rotation x 5. Sitting: postural exercises with actively tilting head to initiate neutral cspine up to 35 sec's without needing propping or assistance from GLASS DECORATOR. Shoulder shrugs and scap adduction. Gentle stretching again for cervical rotation to the R. Ended with manual isometrics for neck retraction and SB to the R. Encouraged her to continue to take muscle relaxer at bedtime to further assist with tightness. Total minutes of Exercise: 16 Manual Therapy: Patient received STM to bilateral cervical paraspinals and UT. Gentle cervical traction in a semi reclined position. Total minutes of Manual Therapy: 10 HOME EXERCISE PROGRAM: gentle stretching into lateral flexion and rotation. Also right lateral flexion against gravity. Shoulder shrugs, scap adduction, and actively holding her head up. - Charges Timed Code Treatment Minutes: 26 Total Treatment Time: 41 Procedures billed for this date of service:: hp, MT, EX Assessment: Patient experiencing ROJO today related to allergies, but is able to herlinda increased reclining position needing only 1 pillow and more R rotation. She is able to hold her head up in more neutral position for 30+ sec's. Patient Education: Body/Joint mechanics, Home Exercise Program, Education of Plan of Care Patient demonstrates compliance with HEP?: Yes Short Term Goals Goal #1: Patient independent and compliant with HEP. Goal to be met by: 06/14/17 Progress towards Goal:: Progressing Goal #2: Pt consistent with taking muscle relaxent in the evening. Goal to be met by: 06/18/17 Progress towards Goal:: Progressing Comments:: Patient has begun taking last night Goal #3: Patient to demonstrate good postural awareness. Goal to be met by: 06/18/17 Progress towards Goal:: Progressing Goal #4: Pt able to hold head into more aligned posture for 30 seconds. Goal to be met by: 06/18/17 Progress towards Goal:: Progressing (Now 15 sec's) Chcf Goals Goal #1: Pt knows HEP and to continue ex's to maintain functional level at D/C. Goal to be met by: 07/14/17 Progress towards goal: Progressing Goal #2: Functional presentation in department less than or equal to 30% impairment. Goal to be met by: 07/14/17 Goal #3: Neck pain <4/10 with daily home and work activities. Goal to be met by: 07/14/17 Progress towards goal: Progressing Goal #4: Cervical AROM improved to enable patient to drive with minimal difficulty. Goal to be met by: 07/14/17 Progress towards goal: Progressing (patient admits to improved ability to turn her head while driving) Plan PLAN OF CARE EXPIRES ON:: 07/14/17 ORDER # VISITS AND/OR THROUGH DATE: 07/14/17 PLAN: Patient returns to MD 07/04/17. She should continue BIW next week and then reassess.
--- NOTE | 2017-06-25 16:53 | RS.OPPTDN ---
Subjective Date of Note: 06/25/17 Visit #: 9 Date of Evaluation: 06/03/17 Payer Source: MEDICARE Treatment Diagnosis: Neck pain, Torticollis Current Subjective/complaints:: Patient says she is hurting more today. Reports she is wearing a theramcare wrap and has been wearing all morning. Says she is now able to lay more reclined on her couch, but often forgets to take her muscle relaxer at bedtime due to falling asleep before remembering. Pain Assessment - Pain Description Pain Location: Increased throbbing pain to the L side of the neck. Also, mentions times of pain moving to the R. Pain Description: Tightness, Throbbing Interventions - Exercise/Activities/Manual Therapy Exercises/Activities: Patient presents wearing a thermacare wrap to her neck. Patient continued position in long sitting with head of bed elevated to allow patient to recline with support of head. After time progressed, she was able to lay nearly flat and head supported into my hands only. Pamela received occipital release and gentle manual traction multiple reps with longer hold periods. She received passive stretching and ROM gentle for R SBing and R rotation. Isometrics for R SB and neck retraction into pillow x 5 supine and then Active rotation x 5. Sitting: postural exercises with actively tilting head to initiate neutral cspine up to 35 sec's without needing propping or assistance from RESEARCH GROUP DIRECTOR. Shoulder shrugs and scap adduction. Gentle stretching again for cervical rotation to the R. Ended with manual isometrics for neck retraction and SB to the R. Encouraged her to continue to take muscle relaxer at bedtime to further assist with tightness. Total minutes of Exercise: 22 Manual Therapy: Patient received STM to bilateral cervical paraspinals and UT. Gentle cervical traction in a semi reclined position. Total minutes of Manual Therapy: 20 HOME EXERCISE PROGRAM: gentle stretching into lateral flexion and rotation. Also right lateral flexion against gravity. Shoulder shrugs, scap adduction, and actively holding her head up. - Charges Timed Code Treatment Minutes: 42 Total Treatment Time: 42 Procedures billed for this date of service:: MT, EX Assessment: Patient experiencing increased pain today to cspine and L UT/SCM. She demo less cervical rotation and SB today compared to previous visit. She wasn't able to hold her head at neutral as long as previously, but probably based on increased pain. She is able to herlinda less inclined position today and able to demo more neutral position in supine. Patient Education: Body/Joint mechanics, Home Exercise Program Patient demonstrates compliance with HEP?: Yes (somewhat) Short Term Goals Goal #1: Patient independent and compliant with HEP. Goal to be met by: 06/14/17 Progress towards Goal:: Progressing Goal #2: Pt consistent with taking muscle relaxent in the evening. Goal to be met by: 06/18/17 Progress towards Goal:: Progressing Goal #3: Patient to demonstrate good postural awareness. Goal to be met by: 06/18/17 Progress towards Goal:: Progressing Goal #4: Pt able to hold head into more aligned posture for 30 seconds. Goal to be met by: 06/18/17 Progress towards Goal:: Progressing (Now 15 sec's) Video Coordinator Goals Goal #1: Pt knows HEP and to continue ex's to maintain functional level at D/C. Goal to be met by: 07/14/17 Progress towards goal: Progressing Goal #2: Functional presentation in department less than or equal to 30% impairment. Goal to be met by: 07/14/17 Goal #3: Neck pain <4/10 with daily home and work activities. Goal to be met by: 07/14/17 Progress towards goal: Progressing Goal #4: Cervical AROM improved to enable patient to drive with minimal difficulty. Goal to be met by: 07/14/17 Progress towards goal: Progressing (patient admits to improved ability to turn her head while driving) Plan PLAN OF CARE EXPIRES ON:: 07/14/17 ORDER # VISITS AND/OR THROUGH DATE: 07/14/17 PLAN: Continue x 1 more week per order.
--- NOTE | 2017-06-27 16:46 | RS.OPPTDN ---
Subjective Date of Note: 06/26/17 Visit #: 10 Date of Evaluation: 06/03/17 Payer Source: MEDICARE Treatment Diagnosis: Neck pain, Torticollis Current Subjective/complaints:: Patient says she would like to continue therapy. She says that she has been trying to lay "more straight" at home. ( Implying she is laying more supine on her couch instead of on the L side). Pamela says she is having less muscle spasms now and very rare ROJO to the forehead, but admits this is due to allergies. - Heat/Cryotherapy Treatment: Hot Pack (cervical and around the L side of neck and shoulder in reclined position supine x 20 mins) Interventions - Exercise/Activities/Manual Therapy Exercises/Activities: Patient continued position in long sitting with head of bed barely elevated to allow patient to recline with support of head. After time progressed, she was able to lay completely flat and head supported into my hands only. After MT, patient was able to lay supine without pillows with head flat on table. Pamela received occipital release and gentle manual traction multiple reps with longer hold periods. She received passive stretching and ROM gentle for R SBing and R rotation. Isometrics for R SB and neck retraction into pillow x 5 supine and then Active rotation x 5. Sitting: postural exercises with actively tilting head to initiate neutral cspine up to 35 sec's without needing propping or assistance from PARACHUTE TAPER. Active cervical R rotation and then to midline multiple reps in sitting with head against bed and then sitting. Shoulder shrugs and scap adduction. Gentle stretching again for cervical rotation to the R. Ended with manual isometrics for neck retraction and SB to the R. Patient did c/o increased L sided neck pain with pushing up from sidelying to sit at EOB. Encouraged her to continue to take muscle relaxer at bedtime to further assist with tightness and use heating pad when she got home to help with sudden increase in muscle spasm. Total minutes of Exercise: 16 Manual Therapy: Patient received STM to bilateral cervical paraspinals and UT. Gentle cervical traction in a semi reclined position. Total minutes of Manual Therapy: 17 HOME EXERCISE PROGRAM: gentle stretching into lateral flexion and rotation. Also right lateral flexion against gravity. Shoulder shrugs, scap adduction, and actively holding her head up. - Charges Timed Code Treatment Minutes: 31 Total Treatment Time: 51 Procedures billed for this date of service:: hp, MT, EX Assessment: Patient should benefit from BIW for 2 more weeks as she has voiced improvement, and patient's Neck Disability Index has increased from 36% to now only 28% impairment. Patient Education: Education of diagnosis, Body/Joint mechanics, Home Exercise Program, Education of Plan of Care Patient demonstrates compliance with HEP?: Yes Short Term Goals Goal #1: Patient independent and compliant with HEP. Goal to be met by: 06/14/17 Progress towards Goal:: Partially Met Comments:: Not consistent with taking muscle relaxer due to falling asleep Goal #2: Pt consistent with taking muscle relaxent in the evening. Goal to be met by: 06/18/17 Progress towards Goal:: Progressing Goal #3: Patient to demonstrate good postural awareness. Goal to be met by: 06/18/17 Progress towards Goal:: Progressing Comments:: better postural awareness Goal #4: Pt able to hold head into more aligned posture for 30 seconds. Goal to be met by: 06/18/17 Progress towards Goal:: Met (now able to for 35 sec's) Mold Operator Goals Goal #1: Pt knows HEP and to continue ex's to maintain functional level at D/C. Goal to be met by: 07/14/17 Progress towards goal: Progressing Goal #2: Functional presentation in department less than or equal to 30% impairment. Goal to be met by: 07/14/17 Progress towards goal: Met Comments: 28 today Goal #3: Neck pain <4/10 with daily home and work activities. Goal to be met by: 07/14/17 Progress towards goal: Progressing Goal #4: Cervical AROM improved to enable patient to drive with minimal difficulty. Goal to be met by: 07/14/17 Progress towards goal: Progressing (patient admits to improved ability to turn her head while driving) Comments: Patient demo 4 3/4inches avg from ear to shoulder Plan PLAN OF CARE EXPIRES ON:: 07/14/17 ORDER # VISITS AND/OR THROUGH DATE: 07/14/17 PLAN: Plan to request BIW for 2 more weeks
--- NOTE | 2017-07-02 09:27 | RS.OPPTDN ---
Subjective Date of Note: 07/01/17 Visit #: 12 Date of Evaluation: 06/03/17 Payer Source: MEDICARE Treatment Diagnosis: Neck pain, Torticollis Current Subjective/complaints:: Patient says she is having a bad day. Reports she has felt depressed about her neck the past few days, but also admits she tries to lift her head up several times throughout the day to maintain her therapy progress. She admits improvement overall, but is afraid after she is discharged, her gains will diminish. Pain Assessment - Pain Description Pain Location: L side of neck - Heat/Cryotherapy Treatment: Hot Pack (wrapped around neck L side x 20 mins in semi inclined position) Interventions - Exercise/Activities/Manual Therapy Exercises/Activities: Patient continued position in long sitting with head of bed barely elevated to allow patient to recline with support of head. After time progressed, she continues to be able to lay completely flat and head supported into my hands only. After MT, patient was able to lay supine without pillows with head flat on table. Pamela received occipital release and gentle manual traction multiple reps with longer hold periods. Pamela layed semi-R sidelying to allow the L side of her neck to be stretched and to show her that she can try to lay R sidelying at home. She received passive stretching and ROM gentle for R SBing and R rotation. Isometrics for R SB and neck retraction into pillow x 5 supine and then Active rotation x 5. Sitting: postural exercises with actively tilting head to initiate neutral cspine up to 35 sec's without needing propping or assistance from SCHOOL SECRETARY. Active cervical R rotation and then to midline multiple reps in sitting with head against bed and then sitting. Shoulder shrugs and scap adduction. Patient now able to hold a more neutral cervical posture for 45 sec's. Gentle stretching again for cervical rotation to the R. Ended with cross stretching for the L and encouraged her to continue to take muscle relaxer at bedtime to further assist with tightness and use heating pad when she got home to help with sudden increase in muscle spasm. Total minutes of Exercise: 15 Manual Therapy: Patient received STM to bilateral cervical paraspinals and UT. Gentle cervical traction in a semi reclined position. Total minutes of Manual Therapy: 17 HOME EXERCISE PROGRAM: gentle stretching into lateral flexion and rotation. Also right lateral flexion against gravity. Shoulder shrugs, scap adduction, and actively holding her head up. - Charges Timed Code Treatment Minutes: 33 Total Treatment Time: 53 Procedures billed for this date of service:: hp, MT, EX Assessment: Patient presents feeling depressed about her condition. She acknowledges she has had improvement, but worries about losing motion and having continued pain once therapy has concluded. She demo improved cervical posture after much MT/EX today and able to hold this position up to 45 sec's, the longest she has been able to maintain a more neutral position. She does remain guarded and tight to bilateral UT/SCM, with more so to the L. Patient Education: Body/Joint mechanics, Home Exercise Program, Education of Plan of Care Patient demonstrates compliance with HEP?: Yes Short Term Goals Goal #1: Patient independent and compliant with HEP. Goal to be met by: 06/14/17 Progress towards Goal:: Partially Met Goal #2: Pt consistent with taking muscle relaxent in the evening. Goal to be met by: 06/18/17 Progress towards Goal:: Progressing Goal #3: Patient to demonstrate good postural awareness. Goal to be met by: 06/18/17 Progress towards Goal:: Progressing Goal #4: Pt able to hold head into more aligned posture for 30 seconds. Goal to be met by: 06/18/17 Progress towards Goal:: Met (now able to for 35 sec's) Jail Goals Goal #1: Pt knows HEP and to continue ex's to maintain functional level at D/C. Goal to be met by: 07/14/17 Progress towards goal: Progressing Goal #2: Functional presentation in department less than or equal to 30% impairment. Goal to be met by: 07/14/17 Progress towards goal: Met Goal #3: Neck pain <4/10 with daily home and work activities. Goal to be met by: 07/14/17 Progress towards goal: Progressing Goal #4: Cervical AROM improved to enable patient to drive with minimal difficulty. Goal to be met by: 07/14/17 Progress towards goal: Progressing (patient admits to improved ability to turn her head while driving) Plan PLAN OF CARE EXPIRES ON:: 07/14/17 ORDER # VISITS AND/OR THROUGH DATE: 07/14/17 PLAN: Patient to continue x 2 more weeks per continuation order dated 06/27/17
--- NOTE | 2017-07-02 10:15 | RS.PTSUM ---
Progress Note/Summary Date of Note: 07/02/17 Date of Evaluation: 06/03/17 Number of Visits: 10 Reporting Period for this Progress Note: 06/03/17 through 06/25/17 Current Complaints/Gains: Patient reports less muscle spasms and now feels headaches are allergy related, not from neck pain. Pt states her daughter has voiced seeing improvement and patient's neck mobility. She reports improved ability to turn her head while driving. Patient says she is laying less inclined at home, trying to lie more supine instead of sitting. She would like to have a few more weeks of therapy due to the amount of improvement she has seen so far. Objective Measurements/Presentation: Patients head placement measures on average 4.5 inches from ear to shoulder. This is 1 inch better than following exercise and manual therapy at initial evaluation and 2 inches of improvement from initial measurements at evaluation. Patient demonstrates more postural awareness and understanding of her need to change habits that have promoted her poor posture. G Codes: Body position current CJ. Body position goal CI Source of G Code Score: Neck Disability index - Short Term Goals Goal #1: Patient independent and compliant with HEP. Goal to be met by: 06/14/17 Progress towards Goal:: Progressing Goal #2: Pt consistent with taking muscle relaxent in the evening. Goal to be met by: 06/18/17 Progress towards Goal:: Progressing Goal #3: Patient to demonstrate good postural awareness. Goal to be met by: 06/18/17 Progress towards Goal:: Progressing Goal #4: Pt able to hold head into more aligned posture for 30 seconds. Goal to be met by: 06/18/17 Progress towards Goal:: Progressing - Photographer Still Goals Goal #1: Pt knows HEP and to continue ex's to maintain functional level at D/C. Goal to be met by: 07/14/17 Progress towards goal: Progressing Goal #2: Functional presentation in department less than or equal to 30% impairment. Goal to be met by: 07/14/17 Progress towards goal: Progressing Goal #3: Neck pain <4/10 with daily home and work activities. Goal to be met by: 07/14/17 Progress towards goal: Progressing Goal #4: Cervical AROM improved to enable patient to drive with minimal difficulty. Goal to be met by: 07/14/17 Progress towards goal: Progressing - Assessment Assessment of Improvement/Progress: Patient has several subjective reports of improvement. She demonstrates much better postural awareness from education in therapy. She demonstrates improved cervical alignment and shows potential to gain more mobility and less pain with continued skilled therapy for 2 more weeks. - Plan Plan: Will request continuation of therapy sessions. Frequency: 2-3 X week Duration: 2 weeks PLAN OF CARE EXPIRES ON:: 07/14/17 ORDER # VISITS AND/OR THROUGH DATE: 07/14/17
--- NOTE | 2017-07-09 13:08 | RS.OPPTDN ---
Subjective Date of Note: 07/03/17 Visit #: 13 Date of Evaluation: 06/03/17 Payer Source: MEDICARE Treatment Diagnosis: Neck pain, Torticollis Current Subjective/complaints:: Patient says she is worried about how her MD visit will go tomorrow. She is hoping he does not suggest surgery. She expresses increased pain today and says her neck hurts no matter what position she is in. - Heat/Cryotherapy Treatment: Hot Pack (surrounding the cervical and L side of neck in R sidelying to help stretch into R rotation/SB) Interventions - Exercise/Activities/Manual Therapy Exercises/Activities: na Manual Therapy: Patient received STM to bilateral cervical paraspinals and UT with more focus to the L side. Gentle cervical traction in a semi reclined position. Continued with STM and gentle ROM into R rotation and SB, then actively initiating this motion. Patient began to have muscle spasms and more soreness especially when trying to change position from supine to sit. Sitting : Gentle PROM for SB and rotation bilaterally and demo increased cervical neutral position while ENGLISH LANGUAGE LEARNER TUTOR assists with maintaining shoulders in proper position and she is able to hold more erect posture for ~40 sec's several times. She ends with scap adduction. Total minutes of Manual Therapy: 22 HOME EXERCISE PROGRAM: gentle stretching into lateral flexion and rotation. Also right lateral flexion against gravity. Shoulder shrugs, scap adduction, and actively holding her head up. - Charges Timed Code Treatment Minutes: 22 Total Treatment Time: 42 Procedures billed for this date of service:: hp, MT Assessment: Patient with elevated pain today and concern about impending MD appt. She had difficulty herlinda positional changes today (supine to sit). Patient Education: Body/Joint mechanics, Home Exercise Program, Education of Plan of Care Patient demonstrates compliance with HEP?: Yes Short Term Goals Goal #1: Patient independent and compliant with HEP. Goal to be met by: 06/14/17 Progress towards Goal:: Met Goal #2: Pt consistent with taking muscle relaxent in the evening. Goal to be met by: 06/18/17 Progress towards Goal:: Progressing Comments:: inconsistent due to falling asleep Goal #3: Patient to demonstrate good postural awareness. Goal to be met by: 06/18/17 Progress towards Goal:: Progressing Goal #4: Pt able to hold head into more aligned posture for 30 seconds. Goal to be met by: 06/18/17 Progress towards Goal:: Met Repair Weaver Goals Goal #1: Pt knows HEP and to continue ex's to maintain functional level at D/C. Goal to be met by: 07/14/17 Progress towards goal: Progressing Goal #2: Functional presentation in department less than or equal to 30% impairment. Goal to be met by: 07/14/17 Progress towards goal: Progressing Goal #3: Neck pain <4/10 with daily home and work activities. Goal to be met by: 07/14/17 Progress towards goal: Progressing Goal #4: Cervical AROM improved to enable patient to drive with minimal difficulty. Goal to be met by: 07/14/17 Progress towards goal: Progressing Plan PLAN OF CARE EXPIRES ON:: 07/14/17 ORDER # VISITS AND/OR THROUGH DATE: 07/14/17 PLAN: Patient to attend x 2 more sessions. Patient to see her MD tomorrow to discuss imaging results and care plan.
--- NOTE | 2017-07-09 13:08 | RS.OPPTDN ---
Subjective Date of Note: 07/08/17 Visit #: 14 Date of Evaluation: 06/03/17 Payer Source: MEDICARE Treatment Diagnosis: Neck pain, Torticollis Current Subjective/complaints:: Patient says she has to have more xrays and lab work this week and needs to reschedule her final visit. She reports her neck pain and tenderness is better and is pleased with her progress. She says she tries to stretch her neck, take her muscle relaxers, but now says she is sleeping "half-sitting up." She says she has done this for so long that it is hard for her to lay on her back or lay R sided. Pamela does say she is able to turn her head better while driving now. Pain Assessment - Pain Description Pain Location: bilateral sides of neck and at occiput - Heat/Cryotherapy Treatment: Hot Pack (cervical and around the L shoulder in sitting) Interventions - Exercise/Activities/Manual Therapy Exercises/Activities: Patient performs: isometric cervical retraction/ R SBing 3x5. Actively holding head up to neutral with somewhat cervical extension up to 45 sec's x 3. Assistance given to stabilize the L shoulder while patient performs cervical neutral and R SB/rotation multiple reps. Patient receives gentle passive stretching for SB, rotation. Shoulder shrugs, scap adduction, scap retraction with red tband, 2# wand for bilateral shoulder flexion while [employer] supports head/neck in neutral. Total minutes of Exercise: 15 Manual Therapy: Patient received STM to bilateral cervical paraspinals and UT with more focus to the L side. Gentle cervical traction in sitting. Continued with STM and gentle ROM into R rotation and SB, then actively initiating this motion. Cross stretching bilaterally and trigger point work. Patient able to herlinda increased pressure at both UT and gentle stretching much better in this position. Total minutes of Manual Therapy: 17 HOME EXERCISE PROGRAM: gentle stretching into lateral flexion and rotation. Also right lateral flexion against gravity. Shoulder shrugs, scap adduction, and actively holding her head up. - Charges Timed Code Treatment Minutes: 32 Total Treatment Time: 52 Procedures billed for this date of service:: hp, MT, ex Assessment: Patient able to hold a more cervical neutral position for longer time today and describes less pain and tightness. Improved functional mobility while turning her head in the car while driving. She is able to perform postural strengthening exercises with better neutral position of the head as well. Measure next session for Neck Index and ROM for final visit. Patient will be having more xrays and lab work to determine care plan. It is anticipated for patient to possibly receive Botox injections per her MD visit. Patient Education: Body/Joint mechanics, Home Exercise Program, Education of Plan of Care Patient demonstrates compliance with HEP?: Yes Short Term Goals Goal #1: Patient independent and compliant with HEP. Goal to be met by: 06/14/17 Progress towards Goal:: Met Goal #2: Pt consistent with taking muscle relaxent in the evening. Goal to be met by: 06/18/17 Progress towards Goal:: Progressing Comments:: inconsistent due to forgetting and falling asleep Goal #3: Patient to demonstrate good postural awareness. Goal to be met by: 06/18/17 Progress towards Goal:: Progressing Goal #4: Pt able to hold head into more aligned posture for 30 seconds. Goal to be met by: 06/18/17 Progress towards Goal:: Progressing Jail Goals Goal #1: Pt knows HEP and to continue ex's to maintain functional level at D/C. Goal to be met by: 07/14/17 Progress towards goal: Progressing Goal #2: Functional presentation in department less than or equal to 30% impairment. Goal to be met by: 07/14/17 Progress towards goal: Progressing Goal #3: Neck pain <4/10 with daily home and work activities. Goal to be met by: 07/14/17 Progress towards goal: Progressing Goal #4: Cervical AROM improved to enable patient to drive with minimal difficulty. Goal to be met by: 07/14/17 Progress towards goal: Progressing Plan PLAN OF CARE EXPIRES ON:: 07/14/17 ORDER # VISITS AND/OR THROUGH DATE: 07/14/17 PLAN: Patient to complete final visit July 14 and will plan to discharge as she will be having more tests performed and possible Botox injections.
--- NOTE | 2017-07-16 16:32 | RS.OPPTDC ---
Date of Discharge: 07/08/17 Date of Evaluation: 06/03/17 Number of Visits: 14 Treatment Diagnosis: Neck pain, Torticollis Current Complaints/Gains: Patient reports less pain and improved mobility to her neck. States she is trying to lay more flat at home, but still sleeps on the couch because her daughter has her bed. She is working on her posture and holding her head up more at work as well. Functional Outcome Measure Neck Disability Index: 28 - G Codes & Severity Modifier G Codes & Modifier: Body position D/C CJ. Body position goal CI Source of G Code score: Neck Disability index Interventions - Exercise/Activities/Manual Therapy Exercises/Activities: na Manual Therapy: Na HOME EXERCISE PROGRAM: gentle stretching into lateral flexion and rotation. Also right lateral flexion against gravity. Shoulder shrugs, scap adduction, and actively holding her head up. - Objective Findings Observations,measurements,etc.: Patient demonstrates an average of 2 inches in improvement for head placement into a closer to neutral posture, compared to initial evaluation. She is able to hold her head in a more neutral posture for a longer amount of time. - Charges Timed Code Treatment Minutes: NA Total Treatment Time: NA Procedures billed for this date of service:: NA Assessment Assessment: Patient with reports of less pain and demonstrates much improved postural awareness. Patient demonstrates improved ability to hold her head closer to neutral, and for a longer amount of time. She appears to understand that many of her habits at home were contributing to this postural deformity and she has been compliant with advice to change or address these habits to help her regain ROM and get some relief of pain. Short Term Goals Goal #1: Patient independent and compliant with HEP. Goal to be met by: 06/14/17 Progress towards Goal:: Met Goal #2: Pt consistent with taking muscle relaxent in the evening. Goal to be met by: 06/18/17 Progress towards Goal:: Partially Met Goal #3: Patient to demonstrate good postural awareness. Goal to be met by: 06/18/17 Progress towards Goal:: Met Goal #4: Pt able to hold head into more aligned posture for 30 seconds. Goal to be met by: 06/18/17 Progress towards Goal:: Met Senior Living Goals Goal #1: Pt knows HEP and to continue ex's to maintain functional level at D/C. Goal to be met by: 07/14/17 Progress towards goal: Met Goal #2: Functional presentation in department less than or equal to 30% impairment. Goal to be met by: 07/14/17 Progress towards goal: Met Goal #3: Neck pain <4/10 with daily home and work activities. Goal to be met by: 07/14/17 Progress towards goal: Partially Met Goal #4: Cervical AROM improved to enable patient to drive with minimal difficulty. Goal to be met by: 07/14/17 Progress towards goal: Not Met Plan Reason for Discharge:: Maximum Potential Met Comments: Patient's Plan of care and it was determined that she would be able to continue her exercises on her own to continue to gain improvement with her posture.
== END 2017-07-19 ==
PROVIDERS: ATTEND Internal Medicine
DX: M54.2 Cervicalgia (principal); M43.6 Torticollis

== ENCOUNTER 2017-07-14 09:26 | Outpatient (CLI) | END 2017-07-14 09:27 | disposition home or self-care (01) | LOC: LAB 09:26 | PROVIDERS: ATTEND Psychiatry & Neurology Neurology | DX: M43.6 Torticollis (principal) | CPT/HCPCS: 36415; 82607; 82746; 83735; 85651 ==

== ENCOUNTER 2017-08-13 09:07 | Outpatient (CLI) ==
--- NOTE | 2017-08-13 12:24 | CT ---
EXAM: CT Chest with and without contrast. HISTORY: Abnormal CT. Possible right lung nodule. COMPARISON: None available. TECHNIQUE: Multiple axial images of the chest were obtained prior to and following intravenous admin istration of 75 mL of Omnipaque 350, low osmolar. Images were reformatted in the sagittal and enriquez l planes. FINDINGS: No mediastinal, hilar, or axillary lymphadenopathy identified. Heart size is normal. No pericardial effusion is detected. Atherosclerotic calcifications present. There is mild consolidation in both lung apices with associated bronchiectasis. Multiple nodules in both lungs are present with the largest measuring up to 0.4 cm in the right lower lobe on image 32 an d left lower lobe on axial image 38. Linear opacity in the left lower lobe extending to the pleural surface noted with adjacent 0.5 cm nodular density on axial image 47. No pleural effusion or pneumoth orax identified. Limited images of the upper abdomen demonstrate intrahepatic and extrahepatic biliary dilatation as w ell as pancreatic ductal dilatation. Gallbladder is absent. The left adrenal gland may be enlarged although is not well evaluated due to adjacent structures. No acute osseous abnormality is identifie d. IMPRESSION: 1. Probable biapical scarring. 2. Bilateral pulmonary nodules measuring up to 0.5 cm. Follow-up in 6-12 months recommended. 3. Biliary and pancreatic ductal dilatation which is incompletely imaged. Correlate with MRCP if the re are signs of biliary obstruction.
== END 2017-08-13 09:08 | disposition home or self-care (01) ==
LOC: RAD 09:07
PROVIDERS: ATTEND Internal Medicine
DX: R91.8 Other nonspecific abnormal finding of lung field (principal)
CPT/HCPCS: 36415; 82565

== ENCOUNTER 2018-05-15 07:49 | Outpatient (CLI) ==
--- NOTE | 2018-05-15 10:45 | CT ---
EXAM: CT THORAX HISTORY: Lung nodule. TECHNIQUE: CT thorax with intravenous contrast. Multiplanar images presented. 75 ml Omnipaque COMPARISON: 08/13/2017 FINDINGS: Heart size is within normal limits. No pericardial effusion. Aortic caliber approaching upper limit normal with dorsal aortic arch at 2.6 cm. This is stable. No mediastinal lymphadenopathy is sugges teresa. The lungs are hyperinflated. There is significant irregular biapical pleuroparenchymal thickening wh ich may be fibrotic in nature. This appears stable. Allowing for differences in slice selection, th e aforementioned scattered small bilateral nodules are stable. There is no acute infiltrate, vascula r congestion, pneumothorax or pleural fluid. The bones reveal scoliosis. IMPRESSION: 1. The aforementioned bilateral small pulmonary nodules are stable. Stable biapical irregular pleur oparenchymal thickening, possibly fibrotic in nature. Follow-up in 9-12 months could be considered.
--- NOTE | 2018-05-15 11:10 | MAMMO ---
EXAM: Digital screening mammogram with tomosynthesis HISTORY: Screening COMPARISON: 01/17/2017 FINDINGS: Digital MLO and CC views of the right and left breast were performed. Due to patient con dition and ability to position, the examination is technically limited. Tomosynthesis was performed. Computer aided detection utilized. There are scattered fibroglandular densities. Benign bilateral vascular calcifications. There is no evidence for mass, asymmetry, distortion, or suspicious calcif ications in either breast. IMPRESSION: 1. No evidence of malignancy in the right or left breast. Examination is technically limited. 2. Annual screening mammogram is recommended in one year. BIRADS category 1, negative examination
== END 2018-05-15 07:50 | disposition home or self-care (01) ==
LOC: RAD 07:49
PROVIDERS: ATTEND Internal Medicine
DX: Z12.31 Encounter for screening mammogram for malignant neoplasm of breast (principal); R91.8 Other nonspecific abnormal finding of lung field
CPT/HCPCS: 36415; 82565

== ENCOUNTER 2018-08-17 08:18 | Outpatient (CLI) | END 2018-08-17 08:19 | disposition home or self-care (01) | LOC: RAD 08:18 | PROVIDERS: ATTEND Internal Medicine | DX: K86.2 Cyst of pancreas (principal) ==